=== PATIENT | female | born 1965 | race Hispanic/Latino ===

== ENCOUNTER 2020-02-02 09:02 | Emergency (ER) | payer OTHER ==
[~2020-02-02] VITALS: Ht 160 cm; Wt 63.5 kg
--- OUTSIDE RECORDS SUMMARY | 2020-02-02 09:05 | XMS REPORT ---
Author Author [facility] Address Unknown Phone Unavailable Care Team Providers Care Will Call Clerk Name Role Phone Unavailable Unavailable Payers Payer Name Policy Type Policy Number Effective Date Expiration Date Problems This patient has no known problems. Allergies, Adverse Reactions, Alerts Allergy Name Allergy Type Status Severity Reaction(s) Onset Date Inactive Date Treating Clinician Comments No Known Allergies DA Active U 2019-12-14 00:00:00 Medications This patient has no known medications. Results Test Description Test Time Test Comments Text Results Atomic Results Result Comments BASIC METABOLIC PANEL 2019-12-14 17:07:00 SODIUM (test code=NA) 141 mmol/L 136-145 POTASSIUM (test code=K) 3.9 mmol/L 3.5-5.1 CHLORIDE (test code=CL) 108.0 mmol/L 98-107 CARBON DIOXIDE (test code=CO2) 29.0 mmol/L 21-32 ANION GAP (test code=GAP) 7.9 10-20 GLUCOSE (test code=GLU) 98 mg/dL 74-106 BLOOD UREA NITROGEN (test code=BUN) 13 mg/dL 7-18 GLOMERULAR FILTRATION RATE (test code=GFR) > 60 mL/min >=60 Estimated GFR by using Modified MDRD formula.Chronic kidney disease is defined as either kidney damageor GFR <60 mL/min/1.73 m2 for >3 months. CREATININE (test code=CREAT) 0.60 mg/dL 0.55-1.02 Note change in reference range due to change in reagent. BUN/CREATININE RATIO (test code=BUN/CREA) 21.7 10-20 CALCIUM (test code=CA) 9.6 mg/dL 8.5-10.1 [id number] 17:07:00* Test Item Value Reference Range Comments TROPONIN-I (test code=TROPI) <0.015 ng/mL 0-0.045 BASIC METABOLIC [id number] 16:49:00* Test Item Value Reference Range Comments SODIUM (test code=NA) 141 mmol/L 136-145 POTASSIUM (test code=K) 3.9 mmol/L 3.5-5.1 CHLORIDE (test code=CL) 108.0 mmol/L 98-107 CARBON DIOXIDE (test code=CO2) mmol/L 21-32 ANION GAP (test code=GAP) 10-20 GLUCOSE (test code=GLU) mg/dL 74-106 BLOOD UREA NITROGEN (test code=BUN) mg/dL 7-18 GLOMERULAR FILTRATION RATE (test code=GFR) mL/min >=60 CREATININE (test code=CREAT) mg/dL 0.55-1.02 BUN/CREATININE RATIO (test code=BUN/CREA) 10-20 CALCIUM (test code=CA) mg/dL 8.5-10.1 [id number] 16:49:00* Test Item Value Reference Range Comments TROPONIN-I (test code=TROPI) ng/mL 0-0.045 CBC W/O [id number] 16:41:00* Test Item Value Reference Range Comments WHITE BLOOD CELL (test code=WBC) 6.8 K/mm3 4.5-12.5 RED BLOOD CELL (test code=RBC) 4.43 mill/mm3 3.7-5.2 HEMOGLOBIN (test code=HGB) 13.1 gram/dL 11.5-15.5 HEMATOCRIT (test code=HCT) 38.2 % 36.0-46.0 MEAN CELL VOLUME (test code=MCV) 86.2 fL 80-98 MEAN CELL HGB (test code=MCH) 29.6 picogram 27.0-33.0 MEAN CELL HGB CONCETRATION (test code=MCHC) 34.3 gram/dL 33.0-36.0 RED CELL DISTRIBUTION WIDTH (test code=RDW) 13.9 % 11.6-16.2 PLATELET COUNT (test code=PLT) 252 K/mm3 150-450 MEAN PLATELET VOLUME (test code=MPV) 10.8 fL 6.7-11.0 CBC W/O [id number] 16:40:00* Test Item Value Reference Range Comments WHITE BLOOD CELL (test code=WBC) K/mm3 4.5-12.5 RED BLOOD CELL (test code=RBC) mill/mm3 3.7-5.2 HEMOGLOBIN (test code=HGB) 13.1 gram/dL 11.5-15.5 HEMATOCRIT (test code=HCT) 38.2 % 36.0-46.0 MEAN CELL VOLUME (test code=MCV) fL 80-98 MEAN CELL HGB (test code=MCH) picogram 27.0-33.0 MEAN CELL HGB CONCETRATION (test code=MCHC) gram/dL 33.0-36.0 RED CELL DISTRIBUTION WIDTH (test code=RDW) % 11.6-16.2 PLATELET COUNT (test code=PLT) K/mm3 150-450 MEAN PLATELET VOLUME (test code=MPV) fL 6.7-11.0 - XR CHEST 1 [id number] 15:51:00 FAX: Quique Christensen MD [place]: St: REG Name: NEO CACERES [facility] : [birth year] Age/S: 54/F [address] [facility] Unit #: [id number] Loc: [place] [address] Phys: Quique Christensen MD Acct: [id number] Dis Date: Status: REG ER PHONE #: [phone] Exam Date: 12/14/2019 4833 FAX #: [phone] Reason: CHEST PAIN EXAMS: CPT CODE: [id number] XR CHEST 1 V 98511 REASON FOR EXAM: CHEST PAIN EXAM ORDER DATE: 12/14/2019 3:18 PM Ordering: Quique Christensen MD Attending:Quique Christensen MD Location: PROCEDURE: - XR CHEST 1 V COMPARISON: FINDINGS: Po rtable AP frontal view of the chest obtained at 3:52 PM shows clear lungs without evidence of consolidation. There is no evidence of effusion. The h eart size is within normal limits. Pulmonary vasculatures are unremarkable . IMPRESSION: No active disease. Electronically Sig dominga by Eric Rodgers on 12/14/2019 at 1551 Reported and s igned by: Mauro Rodgers M.D. CC: Quique Christensen MD Technologist: Elzbieta Shelton(Saúl) Trnscrd Date/Time/By: 12/14/2019 ([id number]) : By: TracyL Orig Print D/T: S: 12/14/2019 (7274) PAGE 1 Signed Report
[2020-02-02 09:37] LABS: BASOPHILS % 0.4 % (0.0-1.0); EOSINOPHILS # (AUTO) 0.1 (0.0-0.4); EOSINOPHILS % 0.9 % (0.0-6.0); HEMATOCRIT 36.8 % (34.2-44.1); HEMOGLOBIN 12.5 g/dL (12.0-16.0); LYMPHOCYTES # (AUTO) 2.9 (1.0-3.2); LYMPHOCYTES % 32.6 % (18.0-39.1); MEAN CORPUSCULAR HEMOGLOBIN 29.5 pg (28-32); MEAN CORPUSCULAR VOLUME 86.8 fL (81-99); MONOCYTES # (AUTO) 0.5 (0.2-0.8); MONOCYTES % 5.8 % (4.4-11.3); NEUTROPHILS # (AUTO) 5.4 (2.1-6.9); PLATELET COUNT 247 x10e3/uL (140-360); RED BLOOD COUNT 4.24 x10e6/uL (3.6-5.1); RED CELL DISTRIBUTION WIDTH 13.8 % (11.7-14.4)
[2020-02-02 09:55] LABS: CLARITY,URINE CLEAR (CLEAR); COLOR,URINE YELLOW (YELLOW)
[2020-02-02 09:56] LABS: BILIRUBIN,URINE MODERATE (NEGATIVE); KETONES,URINE NEGATIVE (NEGATIVE); LEUKOCYTE ESTERASE ,URINE SMALL (NEGATIVE); NITRITE,URINE NEGATIVE (NEGATIVE); PREGNANCY TEST, URINE NEGATIVE (NEGATIVE); PROTEIN,URINE DIPSTICK NEGATIVE (NEGATIVE); URINE UROBILINOGEN 0.2 mg/dL (0.2 - 1)
[2020-02-02 10:05] LABS: ALANINE AMINOTRANSFERASE 43 IU/L (0-55); ALBUMIN 4.3 g/dL (3.5-5.0); ALBUMIN/GLOBULIN RATIO 1.4 (0.8-2.0); ALKALINE PHOSPHATASE 100 IU/L (40-150); ANION GAP 11.7 mmol/L (8-16); BLOOD UREA NITROGEN 16 mg/dL (7-26); BUN/CREATININE RATIO 21 (6-25); CALCIUM 9.4 mg/dL (8.4-10.2); CARBON DIOXIDE 27 mmol/L (22-29); CHLORIDE 107 mmol/L (98-107); CREATININE, SERUM 0.76 mg/dL (0.57-1.11); EST GLOMERULAR FILTRATION RATE > 60 ML/MIN (60-); GLUCOSE 108 mg/dL (74-118); POTASSIUM 3.7 mmol/L (3.5-5.1); SODIUM 142 mmol/L (136-145)
[2020-02-02 10:07] LABS: BACTERIA,URINE MODERATE /HPF; EPITHELIAL CELLS,URINE RARE /LPF; WBC,URINE (MAN) 0-5 /HPF (0-5)
[2020-02-02] MEDS ORDERED: SODIUM CHLORIDE 0.9% 100 ML ONE (10:53)
[2020-02-02] MEDS ORDERED: IOPAMIDOL 370 MG/ML 200 ML INFUS..BTL INJ ONE (10:53)
--- NOTE | 2020-02-02 11:27 | Diagnostic Imaging Report ---
EXAM: CTA Abdomen and Pelvis WITHOUT AND WITH intravenous contrast INDICATION: GI bleeding COMPARISON: None. TECHNIQUE: Abdomen and pelvis were scanned utilizing a multidetector helical scanner from the lung base to the pubic symphysis before and after administration of IV contrast. Coronal and sagittal reformations were obtained. CTA protocol was performed. Scan was performed prior to contrast administration, during arterial phase, and venous delay phase. IV CONTRAST: 100mL of Isovue 370 ORAL CONTRAST: Water RADIATION DOSE: Total DLP: 739 mGy*cm Dose modulation, iterative reconstruction, and/or weight based adjustment of the mA/kV was utilized to reduce the radiation dose to as low as reasonably achievable. FINDINGS: VASCULAR: Minimal atherosclerotic aortic calcifications. No aortic aneurysm. No evidence of active arterial extravasation to explain patient's GI bleeding. The mesenteric vessels are widely patent. Single right and single left renal arteries are widely patent. LOWER THORAX: Normal. HEPATOBILIARY: No focal liver lesion. No biliary ductal dilation. Unremarkable gallbladder. SPLEEN: No splenomegaly. PANCREAS: No focal masses or ductal dilatation. ADRENALS: No adrenal nodules. KIDNEYS/URETERS: No hydronephrosis, stones, or solid mass lesions. PELVIC ORGANS/BLADDER: Unremarkable. PERITONEUM / RETROPERITONEUM: No free air or fluid. LYMPH NODES: No lymphadenopathy. GI TRACT: Wall thickening of a 5 cm segment of distal descending colon without associated diverticulosis. No other abnormal bowel thickening. No bowel obstruction. BONES AND SOFT TISSUES: No acute osseous injury. No suspicious lytic or blastic lesions. IMPRESSION: No evidence of active arterial GI bleeding. Wall thickening of a 5 cm segment of distal descending colon without associated diverticulosis can be seen in the setting of colitis. Signed by: Wilberto Deleon MD on 02/02/2020 11:23 AM
[2020-02-02 12:19] VITALS: BP 129/88
[2020-02-02] MEDS ORDERED: FLAGYL500 MG PO (12:36)
[2020-02-02] MEDS ORDERED: ZOFRAN4 MG SL (12:36)
[2020-02-02] MEDS ORDERED: CIPRO500 MG PO (12:36)
== END 2020-02-02 13:02 | disposition home or self-care (01) ==
LOC: ER 09:02
DX: K51.911 Ulcerative colitis, unspecified with rectal bleeding (principal); K21.9 Gastro-esophageal reflux disease without esophagitis
CPT/HCPCS: 36415; 74174; 80053; 81001; 81025; 85025; 99284; J7050; Q9967